=== PATIENT | male | born 1970 | race Caucasian/White ===

== ENCOUNTER 2023-03-27 06:22 | Day surgery (SDC) | payer OTHER ==
[~2023-03-27] VITALS: Ht 167.6 cm; Wt 93.9 kg
[~2023-03-27 06:22] MED LIST: VITAMIN C500 M1 PO; VITAMIN D250 MC1 PO
[2023-03-27] MEDS ORDERED: MULTI VITAMIN1 EACH PO (06:45)
[2023-03-27 06:51] VITALS: BP 137/90
--- NOTE | 2023-03-27 07:23 | NUR ---
DS ROUNDS. PT AND EXPRESSED SITUATIONALLY CONSISTENT RESPONSES. PROVIDED SUPPORTIVE PRESENCE. CULTIVATED RELATIONSHIP OF TRUST AND CARE. PROVIDED PRAYER. PT AND EXPRESSED GRATITUTDE.
--- NOTE | 2023-03-27 08:10 | NUR ---
03/27/23 0810 Taylor Torres 0802-PT TO PACU IN SF POSITION. EYES OPEN. PT DENIES PAIN NAUSEA OR DIZZINESS. BREATHING EASY AND UNLABORED. SPO2 >90% ON 3 L O2 VIA NC. PT REPOSITIONS SELF TO LL POSITION. PT ENCOURAGED TO PASS GAS. 0806-PT REMAINS AWAKE AND PASSING GAS. BREATHING EASY AND UNLABORED. SPO2 >95% ON 3 L O2 VIA NC. 0810-MD AT BEDSIDE TALKING WITH PATIENT. PT ASKING QUESTIONS APPROPRIATELY. BREATHING EASY AND UNLAOBRED. SPO2 >95% ON 3L O2 VIA NC.
[2023-03-27 08:57] VITALS: BP 122/91
--- NOTE | 2023-03-27 09:09 | OR ---
[facility] [address] [place], [place] [address] Signed DATE OF OPERATION: 03/27/2023 SURGEON: Maite Nichols MD PREOPERATIVE DIAGNOSIS: Screening. POSTOPERATIVE DIAGNOSES: 1. 4 mm polyp at 10 cm in the rectum. 2. Minimal sigmoid diverticulosis. 3. Minimal internal hemorrhoids. PROCEDURE: Colonoscopy with hot biopsy. ESTIMATED BLOOD LOSS: None. INDICATIONS: Terrence is a 53-year-old gentleman, asked to see me for his initial screening colonoscopy. He has no lower GI complaints. There is no family history of colon cancer or polyps. In the office, I gave him a pamphlet on colonoscopy. We reviewed the nature of the test along with the risks including, but not limited to gas bloating, crampy abdominal pain, bleeding, perforation requiring surgery, and missed diagnosis. We also reviewed the written instructions for a bowel prep line by line. He also understands the need for IV conscious sedation. He expressed understanding and wished to proceed. DESCRIPTION OF PROCEDURE: Terrence was taken into our endoscopy suite and placed in the left lateral decubitus position. He was given IV sedation with 125 mcg of fentanyl and 6 mg of Versed. A digital rectal exam was performed and this was unremarkable. He had good sphincter tone. There were no external hemorrhoids. There were no masses. The adult colonoscope was introduced and advanced all around into the cecum under direct visualization of the camera without difficulty. His prep was quite excellent. We could easily see the appendiceal orifice and the ileocecal valve. The scope was then slowly withdrawn. He had a few diverticula in the sigmoid colon. They were small in size, few in number and scattered about. The rectum had a tiny 4 mm polyp back at 10 cm. It was easily removed with hot biopsy forceps. Upon retroflexion of the scope, he had just very minimal internal hemorrhoid columns. After this, the gas was suctioned out and the colonoscope removed. Terrence tolerated the procedure quite well. Electronically Signed By: MAITE NICHOLS MD 03/27/23 0909 PATIENT NAME: TERRENCE GRESHAM OPERATIVE REPORT DATE OF : 72 REPORT #: [id number] PHYSICIAN: MAITE NICHOLS MD PCP: JÚNIOR UMAÑA MD REPORT IS CONFIDENTIAL AND NOT TO BE RELEASED WITHOUT AUTHORIZATION [address] [address] Signed RECOMMENDATIONS: I will see Terrence back in my office in 7 to 14 days to review his results. Maite Nichols MD ALB/MODL /[id number] cc: MD Maite Kothari MD Copies: JÚNIOR UMAÑA DMD, ANDREW L MD ~ Electronically Signed By: MAITE NICHOLS MD 03/27/23 0909 PATIENT NAME: CESAI GRESHAMSpencer CALLEJAS OPERATIVE REPORT DATE OF : 72 REPORT #: [id number] PHYSICIAN: MAITE NICHOLS MD PCP: JÚNIOR UMAÑA MD REPORT IS CONFIDENTIAL AND NOT TO BE RELEASED WITHOUT AUTHORIZATION
--- NOTE | 2023-03-28 16:43 | PATH ---
[facility] [address] [facility] [place], [place] [address] Signed SPECIMEN(S): A RECTAL POLYP AT 10 CM SPECIMEN SOURCE: A. RECTAL POLYP AT 10 CM CLINICAL HISTORY: Screening FINAL PATHOLOGIC DIAGNOSIS: Rectal polyp at 10 cm: - Hyperplastic polyp (one fragment). JVR:elfego MICROSCOPIC EXAMINATION: Histologic sections of all submitted blocks are examined by light microscopy. These findings, together with the gross examination, support the pathologic diagnosis. GROSS DESCRIPTION: The specimen, labeled and designated "Rashida rectal polyp at 10 cm," is received in formalin and consists of one lozano soft tissue fragment, 0.2 cm. Entirely submitted in (A1). VB (under the direct supervision of a pathologist) The Gross Description was prepared using a voice recognition system. The report was reviewed for accuracy; however, sound-alike word errors, addition and/or deletions may occur. If there is any question about this report, please contact Client Services. PERFORMING LABORATORY: Technical component was performed by [facility], [address] [place] [id number] (CLIA# [id number]). Professional interpretation was performed by [facility], [address] [place] [id number] (CLIA#: [id number]). Diagnostician: Terrence Chavarria MD Pathologist Electronically Signed 03/28/2023 Copies: PATIENT NAME: RASHIDACESIASpencer CALLEJAS PATHOLOGY DATE OF : 72 REPORT #: [id number] PHYSICIAN: HE PATHOLOGY PCP: JÚNIOR UMAÑA MD REPORT IS CONFIDENTIAL AND NOT TO BE RELEASED WITHOUT AUTHORIZATION [address] [place] [address] Signed ~ PATIENT NAME: TERRENCE GRESHAM PATHOLOGY DATE OF : 72 REPORT #: [id number] PHYSICIAN: HE PATHOLOGY PCP: JÚNIOR UMAÑA MD REPORT IS CONFIDENTIAL AND NOT TO BE RELEASED WITHOUT AUTHORIZATION
== END 2023-03-27 08:52 | disposition home or self-care (01) ==
LOC: OPS 06:22 → DS 06:22 → OPS 07:30 → DS 07:30 → OPS 08:52
PROVIDERS: ATTEND Colon & Rectal Surgery
PROC: 0DBP8ZZ Excision of Rectum, Via Natural or Artificial Opening Endoscopic (ICD-10-PCS; principal; 2023-03-27 07:30)
DX: Z12.11 Encounter for screening for malignant neoplasm of colon (principal); I10 Essential (primary) hypertension; E66.9 Obesity, unspecified; Z68.33 Body mass index [BMI] 33.0-33.9, adult; K57.30 Diverticulosis of large intestine without perforation or abscess without bleeding; K62.1 Rectal polyp; K64.8 Other hemorrhoids
CPT/HCPCS: 99153; G0500; J2250; J3010; J7121